=== PATIENT | female | born 1945 | race Caucasian/White ===

== ENCOUNTER → 2019-02-24 | Day surgery (SDC) | payer OTHER | LOC: JRADIR 09:04 ==

== ENCOUNTER 2021-05-06 04:45 | Day surgery (SDC) | payer OTHER ==
[2021-05-06 08:30] VITALS: BMI 28.3
[2021-05-06 10:02] VITALS: TEMP 98
[2021-05-06 14:27] VITALS: BP 158/62; PULSE 88
== END 2021-05-06 11:22 | disposition home or self-care (01) ==
LOC: JASU-ENDO 04:45
PROVIDERS: ATTEND Internal Medicine Gastroenterology
PROC: 0DB98ZX Excision of Duodenum, Via Natural or Artificial Opening Endoscopic, Diagnostic (ICD-10-PCS; 2021-05-06)
PROC: 0DB68ZX Excision of Stomach, Via Natural or Artificial Opening Endoscopic, Diagnostic (ICD-10-PCS; 2021-05-06)
PROC: 0DBH8ZX Excision of Cecum, Via Natural or Artificial Opening Endoscopic, Diagnostic (ICD-10-PCS; principal; 2021-05-06 09:00)
DX: Z12.11 Encounter for screening for malignant neoplasm of colon (principal); D50.9 Iron deficiency anemia, unspecified; Z86.010 Personal history of colon polyps; D12.0 Benign neoplasm of cecum; K64.8 Other hemorrhoids; K57.30 Diverticulosis of large intestine without perforation or abscess without bleeding; K31.7 Polyp of stomach and duodenum; K44.9 Diaphragmatic hernia without obstruction or gangrene; K29.40 Chronic atrophic gastritis without bleeding; E11.9 Type 2 diabetes mellitus without complications; I10 Essential (primary) hypertension
CPT/HCPCS: 82962; 88305-TC; 88342-TC

== ENCOUNTER 2024-01-08 04:48 | Day surgery (SDC) | payer OTHER ==
[2024-01-01 11:30] VITALS: BMI 27.8
[2024-01-08] MEDS ORDERED: SODIUM BICARBONATE 8.4% 50 MEQ/50 ML DISP.SYRIN ONE (07:15)
[2024-01-08] MEDS ORDERED: LIDOCAINE HCL 1%, 10 MG/ML (20ML VIAL) ONE (07:20)
[2024-01-08] MEDS ORDERED: PROPOFOL 20 ML ONE (07:21)
[2024-01-08] MEDS ORDERED: HEPARIN NA (PORCINE) 5,000 UNITS/ML 1ML VIAL ONE (07:21)
[2024-01-08] MEDS ORDERED: FENTANYL CITRATE/PF 50 MCG/ML VIAL ONE (07:21)
[2024-01-08] MEDS ORDERED: MIDAZOLAM HCL 2 MG/2 ML SINGLE DOSE VIAL ONE (07:21)
[2024-01-08] MEDS ORDERED: LIDOCAINE HCL/PF 2% SDV 5ML VIAL ONE (07:27)
[2024-01-08] MEDS ORDERED: DEXTROSE 5%-0.45% SALINE 1,000 ML IV SCH (07:30)
[2024-01-08] MEDS: ceFAZolin SODIUM 1 GM VIAL IVPB ONE (07:42)
[2024-01-08] MEDS: LIDOCAINE HCL 2% JELLY 10 ML CARTRIDGE TP ONE (07:45)
[2024-01-08] MEDS: IBUPROFEN 800 MG/8 ML IJ IVPB SCH (08:10)
[2024-01-08] MEDS: ACETAMINOPHEN 1000 MG/100 ML BAG IVPB ONE ×3 (08:10→08:15)
[2024-01-08] MEDS: LACTATED RINGERS SOLUTION 1,000 ML IV SCH (08:10)
[2024-01-08] MEDS ORDERED: ACETAMINOPHEN INJECTION 100 ML IVPB ONE (08:13)
[2024-01-08] MEDS ORDERED: ONDANSETRON 4 MG/2 ML VIAL IVPUSH PRN (08:20)
[2024-01-08] MEDS ORDERED: ceFAZolin SODIUM 1 GM VIAL ONE (09:01)
[2024-01-08] MEDS ORDERED: DEXAMETHASONE SOD PHOSPHATE 4 MG/1 ML VIAL ONE (09:01)
[2024-01-08] MEDS ORDERED: KETOROLAC TROMETHAMINE 30 MG/1 ML VIAL ONE (09:01)
[2024-01-08] MEDS: ONDANSETRON 4 MG/2 ML VIAL IVPUSH ONE (09:14)
[2024-01-08 09:47] VITALS: RESP 18
[2024-01-08 12:28] VITALS: BP 130/78; PULSE 70; TEMP 98.6
== END 2024-01-08 12:31 | disposition home or self-care (01) ==
LOC: JASU-SURG 04:48
PROVIDERS: ATTEND Urology
PROC: 0TJB8ZZ Inspection of Bladder, Via Natural or Artificial Opening Endoscopic (ICD-10-PCS; principal; 2024-01-08 07:30)
DX: N30.10 Interstitial cystitis (chronic) without hematuria (principal); R35.0 Frequency of micturition
CPT/HCPCS: 82962; 94760; J0131; J1644

== ENCOUNTER 2024-12-01 06:36 | Day surgery (SDC) | payer OTHER ==
[2024-11-28 12:53] VITALS: BMI 27.2
[2024-12-01] MEDS ORDERED: BOTULINUM TOXIN A 100 UNITS VIAL IM ONE (08:52)
[2024-12-01 09:55] VITALS: RESP 16
[2024-12-01] MEDS ORDERED: DEXTROSE 5%-0.45% SALINE 1,000 ML IV SCH (12:00)
[2024-12-01] MEDS ORDERED: PROPOFOL 20 ML ONE (12:20)
[2024-12-01] MEDS ORDERED: MIDAZOLAM HCL 2 MG/2 ML SINGLE DOSE VIAL ONE (12:20)
[2024-12-01] MEDS ORDERED: LIDOCAINE HCL/PF 2% SDV 5ML VIAL ONE (12:20)
[2024-12-01] MEDS ORDERED: ONDANSETRON 4 MG/2 ML VIAL ONE ×2 (12:20→12:36)
[2024-12-01] MEDS ORDERED: KETOROLAC TROMETHAMINE 30 MG/1 ML VIAL ONE ×2 (12:20→12:36)
[2024-12-01] MEDS ORDERED: DEXAMETHASONE SOD PHOSPHATE 4 MG/1 ML VIAL ONE ×2 (12:20→12:36)
[2024-12-01] MEDS ORDERED: ceFAZolin SODIUM 1 GM VIAL ONE (12:36)
[2024-12-01] MEDS: ceFAZolin SODIUM 1 GM VIAL IVPB ONE ×2 (12:38)
[2024-12-01 13:15] VITALS: PULSE 78
[2024-12-01] MEDS ORDERED: PROPOFOL 40 ML ONE (13:30)
[2024-12-01 13:53] VITALS: BP 141/71; TEMP 97.7
== END 2024-12-01 14:04 | disposition home or self-care (01) ==
LOC: JASU-SURG 06:36
PROVIDERS: ATTEND Urology
PROC: 3E0K8GC Introduction of Other Therapeutic Substance into Genitourinary Tract, Via Natural or Artificial Opening Endoscopic (ICD-10-PCS; principal; 2024-12-01 11:30)
DX: N32.81 Overactive bladder (principal); N39.41 Urge incontinence
CPT/HCPCS: 82962